=== PATIENT | female | born 1965 | race Hispanic/Latino ===

== ENCOUNTER 2017-11-12 08:34 | Emergency (ER) | payer OTHER ==
[~2017-11-12] VITALS: Ht 157.5 cm; Wt 69.9 kg
[2017-11-12] MEDS ORDERED: ACETAMINOPHEN 325 MG TAB PO ONE (09:15)
--- NOTE | 2017-11-12 10:01 | Diagnostic Imaging Report ---
PROCEDURE:X-RAY CHEST, ONE VIEW COMPARISON:None. INDICATIONS:COUGH, CHEST CONGESTION FINDINGS: There are no consolidations, pleural effusions or pneumothorax. The cardiomediastinal silhouette and pulmonary vasculature are normal. There are no acute osseous abnormalities. CONCLUSION: No acute cardiopulmonary abnormality. Nicholas Canas D.O. Dictated by: Nicholas Canas D.O. on 11/12/2017 at 10:09 Electronically approved by: Nicholas Canas D.O. on 11/12/2017 at 10:09
[2017-11-12] MEDS ORDERED: ACETAMINOPHEN 325 MG TAB ONE (12:38)
== END 2017-11-12 12:54 | disposition home or self-care (01) ==
LOC: ER 08:34
DX: J20.9 Acute bronchitis, unspecified (principal)
CPT/HCPCS: 71010; 87400; 99283